=== PATIENT | female | born 1955 ===

== ENCOUNTER 2019-04-07 07:03 | Day surgery (SDC) | payer BC, OTHER ==
[~2019-04-07] VITALS: Ht 162.6 cm; Wt 79.0 kg
[~2019-04-07 07:03] MED LIST: GINGER PO; NAPR220C2 PO; TURMERIC PO; albuterol inhaler INH; levothyroxine PO; lithium PO; promethazine PO; singulair PO
[2019-04-07] MEDS ORDERED: LACTATED RINGERS 1,000 ML IV SCH (07:24)
[2019-04-07 07:54] VITALS: BP 147/80
[2019-04-07] MEDS ORDERED: PROAIR INH (07:54)
[2019-04-07] MEDS ORDERED: LITH300C PO (07:54)
[2019-04-07] MEDS ORDERED: MONT10TA6 PO (07:54)
[2019-04-07] MEDS ORDERED: LEVO25TA4 PO (07:54)
[2019-04-07] MEDS ORDERED: IPRA3AMP30 INH (07:54)
[2019-04-07] MEDS ORDERED: ERGO500017 PO (07:54)
[2019-04-07] MEDS ORDERED: OXYMETAZOLINE NASAL SPRAY 0.05%, 15ML ONE (08:38)
[2019-04-07] MEDS ORDERED: BACITRACIN OINT 500U/GM, 15 GM ONE (08:38)
[2019-04-07] MEDS ORDERED: EPINEPHRINE TOPICAL SOLN 1 MG/ML, 30ML ONE (08:38)
[2019-04-07] MEDS ORDERED: LIDOCAINE 1%-EPI 1:100K, 20ML ONE (08:38)
[2019-04-07] MEDS ORDERED: FLUORESCEIN SODIUM 500 MG/5 ML ONE (08:38)
[2019-04-07] MEDS ORDERED: BACITRACIN 50,000 UNIT ONE (08:39)
[2019-04-07] MEDS ORDERED: MIDAZOLAM 1 MG/ML, 2ML ONE (08:46)
[2019-04-07] MEDS ORDERED: FENTANYL PF 250 MCG/5ML ONE (08:46)
[2019-04-07 08:52] LABS: BASOPHILS # (AUTO) 0.03 x10^3/uL (0-0.1); BASOPHILS % (AUTO) 0 % (0-1); EOSINOPHILS # (AUTO) 0.95 x10^3/uL (0-0.4); EOSINOPHILS % (AUTO) 13 % (1-7); LYMPHOCYTES # (AUTO) 2.24 x10^3/uL (1-3.4); LYMPHOCYTES % (AUTO) 30 % (22-44); MD NO; MEAN CORPUSCULAR HEMOGLOBIN 28.5 pg (27.0-34.8); MEAN CORPUSCULAR HGB CONC 33.7 g/dL (32.4-35.8); MEAN CORPUSCULAR VOLUME 84.3 fL (80-100); MEAN PLATELET VOLUME 9.2 fL (7.4-10.4); MONOCYTES # (AUTO) 0.44 x10^3/uL (0.2-0.8); MONOCYTES % (AUTO) 6 % (2-9); NEUTROPHILS # (AUTO) 3.78 x10^3/uL (1.8-6.8); NEUTROPHILS % (AUTO) 51 % (42-75); PLATELET COUNT 222 x10^3/uL (130-400); RED BLOOD COUNT 5.33 x10^6/uL (3.82-5.3); RED CELL DISTRIBUTION WIDTH 13.7 % (9.6-15.2)
[2019-04-07] MEDS ORDERED: MEPERIDINE/PF 25MG/0.5ML IVPush PRN (09:00)
[2019-04-07] MEDS ORDERED: HYDROmorphone 2 MG/ML, 1ML IVPush PRN (09:00)
[2019-04-07] MEDS ORDERED: OXYcodone 5 MG/5 ML ORAL.SOL UDC PO PRN (09:00)
[2019-04-07] MEDS ORDERED: DIAZEPAM 5 MG/ML, 2ML IVPush PRN (09:00)
[2019-04-07] MEDS ORDERED: PROMETHAZINE 25 MG/ML, 1ML IV PRN (09:00)
[2019-04-07] MEDS ORDERED: ALBUTEROL SULFATE 2.5 MG/3 ML NPPB PRN (09:00)
[2019-04-07] MEDS ORDERED: FENTANYL PF 100 MCG/2ML IV PRN (09:00)
[2019-04-07] MEDS ORDERED: KETOROLAC 30 MG/1 ML IV PRN (09:00)
[2019-04-07] MEDS ORDERED: ACETAMINOPHEN 325 MG TABLET PO PRN (09:00)
[2019-04-07] MEDS ORDERED: NEOSTIGMINE 1 MG/ML, 10ML ONE (11:20)
[2019-04-07] MEDS ORDERED: DEXAMETHASONE 4 MG/ML, 1ML ONE (11:20)
[2019-04-07] MEDS ORDERED: SUCCINYLCHOLINE 20 MG/ML, 10ML ONE (11:20)
[2019-04-07] MEDS ORDERED: ROCURONIUM 10MG/ML,5ML ONE (11:20)
[2019-04-07] MEDS ORDERED: GLYCOPYRROLATE 0.2MG/1ML, 5ML ONE (11:20)
[2019-04-07] MEDS ORDERED: CEFAZOLIN 1,000 MG ONE (11:20)
[2019-04-07] MEDS ORDERED: ONDANSETRON 2MG/ML, 2ML ONE (11:20)
[2019-04-07] MEDS ORDERED: PROPOFOL 10 MG/ML, 20ML ONE (11:20)
[2019-04-07] MEDS: LABETALOL 5MG/ML, 20ML IV PRN ×2 (11:30→11:42)
[2019-04-07] MEDS ORDERED: FENTANYL PF 100 MCG/2ML ONE (11:35)
[2019-04-07] MEDS ORDERED: PROMETHAZINE 25 MG/ML, 1ML ONE (11:57)
[2019-04-07] MEDS ORDERED: hydrALAzine 20 MG/ML, 1ML ONE (12:02)
[2019-04-07] MEDS: hydrALAzine 20 MG/ML, 1ML IV PRN ×2 (12:06→12:32)
[2019-04-07] MEDS ORDERED: OXYMETAZOLINE NASAL SPRAY 0.05%,30ML NAS PRN (13:30)
== END 2019-04-07 15:00 | disposition home or self-care (01) ==
LOC: OUT 07:03
PROVIDERS: ATTEND Otolaryngology
DX: J32.0 Chronic maxillary sinusitis (principal); J32.1 Chronic frontal sinusitis; J32.2 Chronic ethmoidal sinusitis; J32.3 Chronic sphenoidal sinusitis; J45.909 Unspecified asthma, uncomplicated; D64.9 Anemia, unspecified; B47.0 Eumycetoma; J32.4 Chronic pansinusitis; F31.9 Bipolar disorder, unspecified; F15.90 Other stimulant use, unspecified, uncomplicated; Z88.5 Allergy status to narcotic agent; Z88.8 Allergy status to other drugs, medicaments and biological substances; Z72.89 Other problems related to lifestyle
CPT/HCPCS: 31257; 31267; 36415; 85025; 87070; 87075; 87077; 87102; 87186; 87205; 88304; 88305; 88331; 93005; J0360; J0690; J1100; J2250; J2405; J2550; J2704; J2710; J3010; J3490; J7120; J0330